=== PATIENT | male | born 1975 | race Caucasian/White ===

== ENCOUNTER 2021-06-25 00:21 | Emergency (ER) | payer SELFPAY ==
[~2021-06-25] VITALS: Ht 185.5 cm; Wt 96.2 kg
[2021-06-25 00:28] VITALS: BP_SYST 117; BP_SYST 121; BP_SYST 131; BP_DIAS 70; BP_DIAS 76; BP_DIAS 84
[2021-06-25] MEDS ORDERED: LACTATED RINGERS 1,000 ML IV ONE ×3 (00:28→02:00)
--- NOTE | 2021-06-25 00:39 | ED Syncope ---
General Stated Complaint: FALL,COVID + Source of Information: Patient, EMS Exam Limitations: No Limitations History of Present Illness Date Seen by Provider: Jun 25, 2021 Time Seen by Provider: 00:23 Initial Comments Patient to ER by EMS from home with chief complaint that he got up going to the bathroom when he got back up from going to the bathroom he says he felt off and is chest but not having any pain or shortness of air. He blacked out when his girlfriend helped him back up and he blacked out a second time for a few seconds. He has never had syncope before. He was diagnosed with Covid on Tuesday and symptoms started on Tuesday, 4 days ago. He has had no fevers but has had body aches and malaise. Dry nonproductive cough. No other significant medical history. He says has been drinking lots of fluids and going to the bathroom frequently. No dysuria or diarrhea. Allergies and Home Medications Allergies Coded Allergies: No Known Drug Allergies (Unverified , 06/25/21) Patient Home Medication List Home Medication List Reviewed: Yes Review of Systems Constitutional: No chills, No diaphoresis EENTM: No ear discharge, No ear pain Respiratory: cough; No phlegm; short of breath Cardiovascular: No edema, No Hx of Intervention, No palpitations Gastrointestinal: No abdominal pain, No nausea, No vomiting Genitourinary: No discharge, No dysuria Musculoskeletal: No back pain, No joint pain All Other Systems Reviewed Negative Unless Noted: Yes Past Hqfryla-Bawqps-Jfcqxd Hx Patient Social History Tobacco Use?: No Use of E-Cig and/or Vaping dev: No Substance use?: No Physical Exam Vital Signs Vital Signs - First Documented Capillary Refill : Height, Weight, BMI Height: '" Weight: lbs. oz. kg; BMI Method: General Appearance: No Apparent Distress, WD/WN HEENT: PERRL/EOMI, Pharynx Normal, Moist Mucous Membranes Neck: Full Range of Motion, Normal Inspection Cardiovascular: Regular Rate, Rhythm, No Edema, Normal Peripheral Pulses Respiratory: Chest Non Tender, Lungs Clear, Normal Breath Sounds, No Accessory Muscle Use, No Respiratory Distress Gastrointestinal: Normal Bowel Sounds, No Organomegaly, Non Tender, Soft Extremities: Normal Capillary Refill, Normal Inspection, Normal Range of Motion, No Pedal Edema Neurologic/Psychiatric: Alert, Oriented x3 Cranial Nerves: Normal Hearing, Normal Speech, PERRL Motor/Sensory: No Motor Deficit, No Sensory Deficit, No Pronator Drift Skin: Normal Color, Warm/Dry Progress/Results/Core Measures Results/Orders Lab Results Laboratory Tests Test 06/25/21 00:30 Range/Units White Blood Count 4.7 4.3-11.0 10^3/uL Red Blood Count 5.31 4.30-5.52 10^6/uL Hemoglobin 16.5 13.3-17.7 g/dL Hematocrit 47 40-54 % Mean Corpuscular Volume 88 80-99 fL Mean Corpuscular Hemoglobin 31 25-34 pg Mean Corpuscular Hemoglobin Concent 35 32-36 g/dL Red Cell Distribution Width 12.1 10.0-14.5 % Platelet Count 168 130-400 10^3/uL Mean Platelet Volume 9.4 9.0-12.2 fL Immature Granulocyte % (Auto) 0 % Neutrophils (%) (Auto) 56 42-75 % Lymphocytes (%) (Auto) 20 12-44 % Monocytes (%) (Auto) 22 H 0-12 % Eosinophils (%) (Auto) 1 0-10 % Basophils (%) (Auto) 1 0-10 % Neutrophils # (Auto) 2.6 1.8-7.8 10^3/uL Lymphocytes # (Auto) 0.9 L 1.0-4.0 10^3/uL Monocytes # (Auto) 1.0 0.0-1.0 10^3/uL Eosinophils # (Auto) 0.1 0.0-0.3 10^3/uL Basophils # (Auto) 0.0 0.0-0.1 10^3/uL Immature Granulocyte # (Auto) 0.0 0.0-0.1 10^3/uL Neutrophils % (Manual) 50 % Lymphocytes % (Manual) 20 % Monocytes % (Manual) 20 % Eosinophils % (Manual) 4 % Band Neutrophils 3 % Atypical Lymphocytes 3 % Toxic Granulation 2+ Microcytosis SLIGHT Sodium Level 134 L 135-145 MMOL/L Potassium Level 4.1 3.6-5.0 MMOL/L Chloride Level 101 98-107 MMOL/L Carbon Dioxide Level 22 21-32 MMOL/L Anion Gap 11 5-14 MMOL/L Blood Urea Nitrogen 13 7-18 MG/DL Creatinine 1.57 H 0.60-1.30 MG/DL Estimat Glomerular Filtration Rate 48 BUN/Creatinine Ratio 8 Glucose Level 110 H 70-105 MG/DL Calcium Level 8.7 8.5-10.1 MG/DL Corrected Calcium 8.8 8.5-10.1 MG/DL Total Bilirubin 0.4 0.1-1.0 MG/DL Aspartate Amino Transf (AST/SGOT) 41 H 5-34 U/L Alanine Aminotransferase (ALT/SGPT) 31 0-55 U/L Alkaline Phosphatase 51 40-136 U/L Troponin I < 0.028 <0.028 NG/ML B-Type Natriuretic Peptide 36.7 <100.0 PG/ML Total Protein 6.8 6.4-8.2 GM/DL Albumin 3.9 3.2-4.5 GM/DL My Orders Orders - ALL ZHAO Lactated Ringers (Lr 1000 Ml Iv Solution (06/25/21 00:28) Ekg Tracing (06/25/21 00:32) Continuous Ekg Monitoring (06/25/21 00:32) Troponin I (06/25/21 00:32) Cbc With Automated Diff (06/25/21 00:32) BNP (06/25/21 00:32) Comprehensive Metabolic Panel (06/25/21 00:32) Orthostatic Vital Signs (Adult (06/25/21 00:32) Ed Iv/Invasive Line Start (06/25/21 00:32) Lactated Ringers (Lr 1000 Ml Iv Solution (06/25/21 00:45) Covid-19 External Lab Results (06/25/21 00:41) Isolation Central Supply Req (06/25/21 00:41) Manual Differential (06/25/21 00:30) Ed Iv/Invasive Line Start (06/25/21 01:49) Lactated Ringers (Lr 1000 Ml Iv Solution (06/25/21 02:00) Ct Head Wo (06/25/21 01:49) Medications Given in ED Current Medications Medications Dose Ordered Sig/Ruth Route Start Time Stop Time Status Last Admin Dose Admin Lactated Ringer's 1,000 ml @ 0 mls/hr Q0M ONCE IV 06/25/21 00:45 06/25/21 00:46 DC 06/25/21 00:38 999 MLS/HR Lactated Ringer's 1,000 ml @ 0 mls/hr Q0M ONCE IV 06/25/21 02:00 06/25/21 02:01 DC 06/25/21 02:01 999 MLS/HR Vital Signs/I&O 06/25/21 06/25/21 06/25/21 00:21 00:21 00:28 Temp 37.2 Pulse 79 79 133 Resp 16 B/P (MAP) 121/70 (87) 121/70 (87) 117/76 (90) 131/84 (100) Pulse Ox 96 O2 Delivery Room Air Room Air Progress Progress Note #1: Time: 00:38 Progress Note A liter of lactated Ringer's and syncopal work-up. Orthostatic vital signs. Syncope after going to the bathroom with Covid. Will check troponin and EKG will help rule out significant viral myocarditis. Orthostatics were significant for heart rate jumping from the low 80s to 133 on standing. Progress Note #2: Time: 01:50 Progress Note Patient is on Xarelto for history of atrial fibrillation that started after his from cancer a few years ago. He has an appointment being worked on to go see a collection analyst by his PCP. He is not on any other medications. He was on atenolol briefly but said that it made him feel very poorly. He says he has not felt palpitations for some time. He does not have a personal history of blood clots nor does have a familial history. He is uncertain whether he hit his head when he collapsed because he does not remember at all. We did discuss the risks, benefits and alternatives to imaging his head versus observation and after using a clinic supported decision-making process the patient elected to get a CT. We will give him a second liter of fluids and reevaluate. He says he is already feeling much better after the first liter Initial ECG Impression Date: Jun 25, 2021 Initial ECG Impression Time: 00:33 Initial ECG Rate: 79 Initial ECG Rhythm: Normal Sinus Initial ECG Intervals: Normal Initial ECG Impression: Normal Initial ECG Comparisson: No Previous ECG Available Comment Normal sinus rhythm without clinically relevant ST changes. Diagnostic Imaging Diagonstic Imaging: CT Plain Films/CT/US/NM/MRI: head Comments No intracranial abnormality Reviewed: Reviewed by Me Departure Impression Primary Impression: Syncope and collapse Additional Impressions: Orthostasis COVID-19 Dehydration determined by examination Disposition: HOME, SELF-CARE Condition: Stable Departure-Patient Inst. Decision time for Depature: 03:00 Referrals: ROCÍO JOHNSON MD (Family) Primary Care Physician Patient Instructions: COVID-19 (DC), Syncope (Fainting) (DC) Add. Discharge Instructions: Drink plenty of fluids. Discussed with your primary care doctor and collection analyst appropriate management of atrial fibrillation with Xarelto. Return to the nearest ER for continued passing out, chest pain or other worrisome symptoms. ALL ZHAO J Jun 25, 2021 00:39
[2021-06-25 00:46] LABS: BASOPHILS % (AUTO) 1 % (0-10); EOSINOPHILS # (AUTO) 0.1 10^3/uL (0.0-0.3); EOSINOPHILS % (AUTO) 1 % (0-10); HEMATOCRIT 47 % (40-54); HEMOGLOBIN 16.5 g/dL (13.3-17.7); LYMPHOCYTES # (AUTO) 0.9 10^3/uL (1.0-4.0); LYMPHOCYTES % (AUTO) 20 % (12-44); MEAN CORPUSCULAR HEMOGLOBIN 31 pg (25-34); MEAN CORPUSCULAR HGB CONC 35 g/dL (32-36); MEAN CORPUSCULAR VOLUME 88 fL (80-99); MEAN PLATELET VOLUME 9.4 fL (9.0-12.2); MONOCYTES % (AUTO) 22 % (0-12); NEUTROPHILS # (AUTO) 2.6 10^3/uL (1.8-7.8); NEUTROPHILS % (AUTO) 56 % (42-75); PLATELET COUNT 168 10^3/uL (130-400); WHITE BLOOD COUNT 4.7 10^3/uL (4.3-11.0)
[2021-06-25 01:10] LABS: ALBUMIN 3.9 GM/DL (3.2-4.5); CHLORIDE 101 MMOL/L (98-107); POTASSIUM 4.1 MMOL/L (3.6-5.0); SODIUM 134 MMOL/L (135-145)
[2021-06-25 01:12] LABS: CALCIUM 8.7 MG/DL (8.5-10.1)
[2021-06-25 01:13] LABS: GLUCOSE 110 MG/DL (70-105); TOTAL PROTEIN 6.8 GM/DL (6.4-8.2)
[2021-06-25 01:14] LABS: CARBON DIOXIDE 22 MMOL/L (21-32)
[2021-06-25 01:15] LABS: BILIRUBIN,TOTAL 0.4 MG/DL (0.1-1.0)
[2021-06-25 01:16] LABS: ALKALINE PHOSPHATASE 51 U/L (40-136); CREATININE SERUM 1.57 MG/DL (0.60-1.30); GFR ESTIMATED 48
[2021-06-25 01:17] LABS: BUN/CREATININE RATIO 8
[2021-06-25 01:19] LABS: ALANINE AMINOTRANSFERASE 31 U/L (0-55)
[2021-06-25 01:28] LABS: ATYPICAL LYMPHOCYTES 3 %; BAND NEUTROPHILS 3 %; EOSINOPHILS % (MANUAL) 4 %; LYMPHOCYTES % (MANUAL) 20 %; MICROCYTOSIS SLIGHT; MONOCYTES % (MANUAL) 20 %; NEUTROPHILS % (MANUAL) 50 %; TOXIC GRANULATION/VACUOLAZATIO 2+
[2021-06-25 03:08] VITALS: BP 115/62
--- NOTE | 2021-06-25 06:31 | Diagnostic Imaging Report ---
EXAMINATION: CT head without contrast. TECHNIQUE: Multiple contiguous axial images were obtained through the brain without the use of intravenous contrast. All CT scans use one or more of the following dose optimizing techniques: automated exposure control, MA and/or KvP adjustment based on patient size and exam type or iterative reconstruction. HISTORY: syncope collapse on Xarelto COMPARISON: None available. FINDINGS: The ventricles and sulci are normal. No abnormal attenuation of brain parenchyma is present. No acute intracranial hemorrhage or abnormal extra-axial fluid collections are present. No hyperdense vessel. The calvarium is intact. The mastoid air cells are clear. The visualized paranasal sinuses are clear. The orbits are normal. IMPRESSION: 1. No acute intracranial abnormality. 2. Agree with preliminary interpretation. Dictated by: Dictated on workstation # [id number]
== END 2021-06-25 03:08 | disposition home or self-care (01) ==
LOC: EDUNIT# 00:21 → ER 00:23
DX: R55 Syncope and collapse (principal); U07.1 COVID-19; E86.0 Dehydration
CPT/HCPCS: 36415; 70450; 80053; 83880; 84484; 85007; 85025; 85027; 93005

== ENCOUNTER 2022-05-23 21:30 | Emergency (ER) | payer BC ==
[~2022-05-23] VITALS: Ht 185 cm; Wt 97.5 kg
[2022-05-23 22:20] LABS: BASOPHILS # (AUTO) 0.1 10^3/uL (0.0-0.1); BASOPHILS % (AUTO) 1 % (0-10); EOSINOPHILS # (AUTO) 0.4 10^3/uL (0.0-0.3); EOSINOPHILS % (AUTO) 5 % (0-10); HEMATOCRIT 45 % (40-54); HEMOGLOBIN 16.1 g/dL (13.3-17.7); LYMPHOCYTES # (AUTO) 2.2 10^3/uL (1.0-4.0); LYMPHOCYTES % (AUTO) 28 % (12-44); MEAN CORPUSCULAR HEMOGLOBIN 32 pg (25-34); MEAN CORPUSCULAR HGB CONC 36 g/dL (32-36); MEAN CORPUSCULAR VOLUME 87 fL (80-99); MEAN PLATELET VOLUME 9.2 fL (9.0-12.2); MONOCYTES % (AUTO) 13 % (0-12); NEUTROPHILS # (AUTO) 4.1 10^3/uL (1.8-7.8); NEUTROPHILS % (AUTO) 53 % (42-75); PLATELET COUNT 248 10^3/uL (130-400); WHITE BLOOD COUNT 7.8 10^3/uL (4.3-11.0)
[2022-05-23] MEDS ORDERED: ENOXAPARIN 100 MG/1 ML (LOVENOX) SYR SC ONE (22:30)
--- NOTE | 2022-05-23 22:30 | ED Cardiac General ---
History of Present Illness General Chief Complaint: Cardiac/General Problems Stated Complaint: IRREGULAR HEARTBEAT Source: patient History of Present Illness Date Seen by Provider: May 23, 2022 Time Seen by Provider: 22:05 Initial Comments PT ARRIVES VIA POV FROM HOME C/O IRREGULAR HEART BEAT STATES HE WAS DX WITH ATRIAL FIBRILLATION IN THE LAST YEAR--WAS SEEN BY MAL HERNANDES IN [facility], HAD AN EKG (NO OTHER TESTS OF ANY KIND, PER PT) AND DX WITH ATRIAL FIBRILLATION AND GIVEN RX FOR ATENOLOL. PT HAS NEVER BEEN ON ASPIRIN OR ANY BLOOD THINNER, OR HAD ANY OTHER TESTS OF ANY KIND, AND HAS NEVER BEEN REFERRED TO A COTTAGE CHE[employer] MAKER STATES HE WAS TOLD IT WAS BECAUSE OF STRESS, DUE TO DYING OF CANCER. PT SELF DC'D THE MEDICATION 7-8 MONTHS AGO PT STATES HE HAS HAD AN "IRREGULAR HEART BEAT OFF AND ON" FOR AT LEAST A YEAR. STATES IT HAS BEEN MORE FREQUENT THE LAST COUPLE OF MONTHS, AND HAS HAD MUCH FATIGUE LATELY. PT HAS NOT ATTEMPTED TO FOLLOW UP WITH ANY ONE AT ANY TIME, UNTIL DEYSI STATES TODAY HE WAS WORKING OUT, AND HIS SYMPTOMS GOT MUCH WORSE ( NORMALLY WORKS OUT 4 DAYS A WEEK, AND WAS NOT DOING ANYTHING UNUSUAL TODAY) STATES HIS HEART WAS BEATING VERY IRREGULAR, FELT SHORT OF BREATH WHILE HE WAS WORKING OUT, AND GOT LIGHTHEADED AND THOUGHT HE MIGHT PASS OUT-SO HE SAT DOWN. THEN AFTER HE GOT OUT OF THE SHOWER [employer], HE BROKE OUT INTO A SWEAT. NO CHEST PAIN NO NAUSEA/VOMITING NO SWELLING IN LEGS/ FEET OR PAIN IN CALVES NO FEVER OR RECENT ILLNESS. DENIES ANY OTHER MEDICAL PROBLEMS DOES NOT TAKE ANY OVER THE COUNTER MEDICATIONS OR SUPPLEMENTS PCP: MAL HERNANDES IN [facility]. Allergies and Home Medications Allergies Coded Allergies: No Known Drug Allergies (Unverified , 06/25/21) Review of Systems Review of Systems Constitutional: see HPI, diaphoresis, dizziness EENTM: No Symptoms Reported Respiratory: See HPI, Shortness of Air, SOA With Exertion Cardiovascular: See HPI, Irregular Heart Rate, Lightheadedness, Palpitations, Other (NEAR-SYNCOPE) Gastrointestinal: No Symptoms Reported Genitourinary: No Symptoms Reported Musculoskeletal: no symptoms reported Skin: no symptoms reported Psychiatric/Neurological: No Symptoms Reported Endocrine: No Symptoms Reported Hematologic/Lymphatic: No Symptoms Reported Past Vzktsel-Remjkl-Yrgxsy Hx Patient Social History Tobacco Use?: No Smoking Status: Former Smoker (SMOKED IN COLLEGE) Substance use?: Yes Substance type: Marijuana Additional substance use comme: THC IN PAST Alcohol Use?: Yes Alcohol Frequency: Several times a month Past Medical History Surgeries: Yes (LIPOMA REMOVED) Respiratory: No Cardiac: Yes Atrial Fibrillation Neurological: No Genitourinary: No Gastrointestinal: No Musculoskeletal: No Endocrine: No HEENT: No Cancer: No Psychosocial: No Integumentary: No Blood Disorders: No Physical Exam Vital Signs Vital Signs - First Documented 05/23/22 22:12 Temp 37.0 Pulse 77 Resp 20 B/P (MAP) 153/104 (120) Pulse Ox 98 O2 Delivery Room Air Capillary Refill : Less Than 3 Seconds Height, Weight, BMI Height: '" Weight: lbs. oz. kg; 27.00 BMI Method: General Appearance: No Apparent Distress, WD/WN Neck: Normal Inspection Respiratory: Normal Breath Sounds, No Accessory Muscle Use, No Respiratory Distress Cardiovascular: No Edema, No JVD, No Murmur, Normal Peripheral Pulses, Irregularly Irregular Gastrointestinal: Non Tender, Soft Extremity: Normal Capillary Refill, Normal Inspection, Normal Range of Motion, Non Tender, No Calf Tenderness, No Pedal Edema Neurologic/Psychiatric: Alert, Oriented x3, No Motor/Sensory Deficits, Normal Mood/Affect, policy officer II-XII Norm as Tested Skin: Normal Color (VERY MCKEON), Warm/Dry; No Rash Progress/Results/Core Measures Results/Orders Lab Results Laboratory Tests Test 05/23/22 22:12 Range/Units White Blood Count 7.8 4.3-11.0 10^3/uL Red Blood Count 5.11 4.30-5.52 10^6/uL Hemoglobin 16.1 13.3-17.7 g/dL Hematocrit 45 40-54 % Mean Corpuscular Volume 87 80-99 fL Mean Corpuscular Hemoglobin 32 25-34 pg Mean Corpuscular Hemoglobin Concent 36 32-36 g/dL Red Cell Distribution Width 11.6 10.0-14.5 % Platelet Count 248 130-400 10^3/uL Mean Platelet Volume 9.2 9.0-12.2 fL Immature Granulocyte % (Auto) 0 % Neutrophils (%) (Auto) 53 42-75 % Lymphocytes (%) (Auto) 28 12-44 % Monocytes (%) (Auto) 13 H 0-12 % Eosinophils (%) (Auto) 5 0-10 % Basophils (%) (Auto) 1 0-10 % Neutrophils # (Auto) 4.1 1.8-7.8 10^3/uL Lymphocytes # (Auto) 2.2 1.0-4.0 10^3/uL Monocytes # (Auto) 1.0 0.0-1.0 10^3/uL Eosinophils # (Auto) 0.4 H 0.0-0.3 10^3/uL Basophils # (Auto) 0.1 0.0-0.1 10^3/uL Immature Granulocyte # (Auto) 0.0 0.0-0.1 10^3/uL D-Dimer < 0.27 0.00-0.49 UG/ML Sodium Level 140 135-145 MMOL/L Potassium Level 3.8 3.6-5.0 MMOL/L Chloride Level 104 98-107 MMOL/L Carbon Dioxide Level 22 21-32 MMOL/L Anion Gap 14 5-14 MMOL/L Blood Urea Nitrogen 19 H 7-18 MG/DL Creatinine 1.58 H 0.60-1.30 MG/DL Estimat Glomerular Filtration Rate 54 BUN/Creatinine Ratio 12 Glucose Level 101 70-105 MG/DL Calcium Level 9.1 8.5-10.1 MG/DL Corrected Calcium 8.9 8.5-10.1 MG/DL Magnesium Level 2.2 1.6-2.4 MG/DL Total Bilirubin 0.7 0.1-1.0 MG/DL Aspartate Amino Transf (AST/SGOT) 44 H 5-34 U/L Alanine Aminotransferase (ALT/SGPT) 37 0-55 U/L Alkaline Phosphatase 54 40-136 U/L Troponin I 0.036 H <0.028 NG/ML B-Type Natriuretic Peptide 24.3 <100.0 PG/ML Total Protein 7.2 6.4-8.2 GM/DL Albumin 4.3 3.2-4.5 GM/DL TSH [place] Testing 2.37 0.35-4.94 UIU/ML My Orders Orders - TRUONG NOONAN DO Ekg Tracing (05/23/22 22:03) Ed Iv/Invasive Line Start (05/23/22 22:07) Monitor-Rhythm Ecg Trace Only (05/23/22 22:07) Bnp Taliaferro (05/23/22 22:07) Cbc With Automated Diff (05/23/22 22:07) Comprehensive Metabolic Panel (05/23/22 22:07) Fibrin Degradation Products (05/23/22 22:07) Drug Screen Stat (Urine) (05/23/22 22:07) Magnesium (05/23/22 22:07) Thyroid Analyzer (05/23/22 22:07) Ua Culture If Indicated (05/23/22 22:07) Troponin I [place] (05/23/22 22:07) Enoxaparin Injection (Lovenox Injection) (05/23/22 22:30) Lorazepam Tablet (Ativan Tablet) (05/23/22 22:51) Ed Iv/Invasive Line Start (05/23/22 23:00) Ns Iv 1000 Ml (Sodium Chloride 0.9%) (05/23/22 23:00) Medications Given in ED Current Medications Medications Dose Ordered Sig/Ruth Route Start Time Stop Time Status Last Admin Dose Admin Enoxaparin Sodium 100 mg ONCE ONCE SC 05/23/22 22:30 05/23/22 22:31 DC 05/23/22 22:31 100 MG Vital Signs/I&O 05/23/22 22:12 Temp 37.0 Pulse 77 Resp 20 B/P (MAP) 153/104 (120) Pulse Ox 98 O2 Delivery Room Air Progress Progress Note : Progress Note HEART RATE IS 70-90, IN ATRIAL FIBRILLATION OTHER VITALS NORMAL GIVEN ASPIRIN AND LOVENOX Departure Impression Primary Impression: Chronic atrial fibrillation Disposition: 01 HOME, SELF-CARE Condition: Stable Departure-Patient Inst. Decision time for Depature: 00:20 Referrals: NO,LOCAL PHYSICIAN (PCP) Primary Care Physician DARIUSZ HERNANDES (Family) Primary Care Physician Patient Instructions: Atrial Fibrillation, Going Home on Blood Thinners Add. Discharge Instructions: HOME, REST AVOID CAFFEINE OR ANY ENERGY DRINKS OR SUPPLEMENTS FOLLOW UP WITH DR. CARSON, COTTAGE CHEESE MAKER, THIS WEEK FOR FURTHER CARE--CALL IN THE MORNING FOR APPOINTMENT All discharge instructions reviewed with patient and/or family. Voiced understanding. Scripts Apixaban (Eliquis) 5 Mg Tablet 5 MG PO BID for 30 Days, #74 TAB TAKE 2 TABLETS BID X 7 DAYS, THEN 1 TABLET BID Prov: TRUONG NOONAN DO 05/24/22 Metoprolol Succinate (Toprol Xl) 25 Mg Tab.er.24h 25 MG PO DAILY, #30 TAB Prov: TRUONG NOONAN DO 05/24/22 Work/School Note: Work Release Form Date Seen in the Emergency Department: May 23, 2022 Return to Work: May 24, 2022 Other Restrictions Listed Below: NO STRENUOUS ACTIVITY, NO LIFTING, ETC. UNTIL CLEARED BY TRUONG DURON DO May 23, 2022 22:30
[2022-05-23 22:37] LABS: ALBUMIN 4.3 GM/DL (3.2-4.5)
[2022-05-23 22:38] LABS: POTASSIUM 3.8 MMOL/L (3.6-5.0)
[2022-05-23 22:39] LABS: CALCIUM 9.1 MG/DL (8.5-10.1)
[2022-05-23 22:40] LABS: TOTAL PROTEIN 7.2 GM/DL (6.4-8.2)
[2022-05-23 22:42] LABS: BILIRUBIN,TOTAL 0.7 MG/DL (0.1-1.0)
[2022-05-23 22:44] LABS: CREATININE SERUM 1.58 MG/DL (0.60-1.30)
[2022-05-23 22:46] LABS: MAGNESIUM 2.2 MG/DL (1.6-2.4)
[2022-05-23] MEDS ORDERED: LORazepam 0.5 MG (ATIVAN) TABLET PO STA (22:51)
[2022-05-23] MEDS ORDERED: NS IV 1000 ML 1,000 ML IV SCH (23:00)
[2022-05-23 23:09] LABS: TSH (THYROID ANALYZER) 2.37 UIU/ML (0.35-4.94)
[2022-05-24] MEDS ORDERED: METO-351 PO (00:28)
[2022-05-24] MEDS ORDERED: APIX5TAB PO (00:28)
[2022-05-24 00:50] VITALS: BP 129/97
== END 2022-05-24 00:50 | disposition home or self-care (01) ==
LOC: EDUNIT# 21:30 → ER 21:33
DX: I48.20 Chronic atrial fibrillation, unspecified (principal); Z87.891 Personal history of nicotine dependence; Z28.310 Unvaccinated for COVID-19
CPT/HCPCS: 36415; 80053; 83735; 83880; 84443; 84484; 85025; 85379; 93005; 93041

== ENCOUNTER → 2022-05-25 | Outpatient (CLI) | payer BC ==
[~2022-05-25] MED LIST: APIX5TAB PO; METO-351 PO
== END ==
LOC: CARD 10:20
PROVIDERS: ATTEND Internal Medicine Cardiovascular Disease
DX: I48.0 Paroxysmal atrial fibrillation (principal); I51.7 Cardiomegaly; I34.0 Nonrheumatic mitral (valve) insufficiency
CPT/HCPCS: 93306

== ENCOUNTER → 2022-05-27 | Outpatient (CLI) | payer BC ==
[2022-05-27 14:45] VITALS: BP 134/84
--- NOTE | 2022-05-28 14:53 | Cardiology Stress Test Report ---
Stress Test Report Date of Procedure/Referring: Date of Procedure: May 27, 2022 PCP No,Local Physician Admitting Physician Admitting Physician: Attending Physician: Lemuel Botello Jr, MD Indications: Paroxysmal atrial fibrillation. Baseline Heart Rate: 77 Baseline Blood Pressure: Blood Pressure Systolic: 134 Blood Pressure Diastolic: 84 Baseline EKG: Baseline EKG: Sinus rhythm with frequent, isolated premature ventricular complexes. Summary/Conclusion: PROCEDURE: The patient was exercised for total of 10 minutes of the standard Tony protocol achieving a maximum MET level of 11.7. The resting heart rate was 77 bpm and the peak heart rate was 148 bpm, which represents 85% of the maximum predicted heart rate. The resting blood pressure was 134/84 mmHg and the peak blood pressure was 205/88 mmHg. This represents a normal heart rate and a hypertensive blood pressure response to exercise. The test was stopped due to the patient attaining the target heart rate. There was no exercise- induced chest discomfort. There were premature supraventricular and premature ventricular complexes during the test. There were no exercise-induced electroca rdiogram changes. The patient exhibited excellent exercise capacity for age. IMPRESSION: 1. Normal heart rate and a hypertensive blood pressure response to exercise. 2. There was no chest discomfort during the test. 3. There were isolated premature supraventricular and premature ventricular complexes throughout the test. 4. There were no stress-induced electrocardiogram changes. 5. The patient exhibited excellent exercise capacity for age at 10 minutes of the Tony protocol. Certain portions of this document may have been dictated utilizing voice recognition technology. Inherent to this technology, typographical and grammat ical errors may exist. As much as I am diligent to identify and correct these mistakes, some errors may remain in the document. LEMUEL BOTELLO JR, MD May 28, 2022 14:53
== END ==
LOC: CARD 14:30
PROVIDERS: ATTEND Internal Medicine Cardiovascular Disease
DX: I48.0 Paroxysmal atrial fibrillation (principal)
CPT/HCPCS: 93017

== ENCOUNTER 2022-09-09 05:33 | Emergency (ER) | payer BC ==
[~2022-09-09] VITALS: Ht 185.5 cm; Wt 97.7 kg
[2022-09-09] MEDS ORDERED: LACTATED RINGERS 1,000 ML IV STA (06:05)
[2022-09-09 06:12] LABS: HEMATOCRIT 45 % (40-54); HEMOGLOBIN 16.3 g/dL (13.3-17.7); MEAN CORPUSCULAR HEMOGLOBIN 31 pg (25-34); MEAN CORPUSCULAR HGB CONC 37 g/dL (32-36); MEAN CORPUSCULAR VOLUME 85 fL (80-99); MEAN PLATELET VOLUME 9.1 fL (9.0-12.2); PLATELET COUNT 257 10^3/uL (130-400); WHITE BLOOD COUNT 6.6 10^3/uL (4.3-11.0)
--- NOTE | 2022-09-09 06:13 | ED Abdominal Pain ---
General Chief Complaint: Abdominal/GI Problems Stated Complaint: ABD PAIN Nursing Triage Note: PT STATES ABD DISCOMFORT, N/V THAT STARTED ON TUESDAY, CONSTIPATION SINCE TUESDAY EVENING, UNABLE TO KEEP ANYTHING DOWN. Source of Information: Patient Exam Limitations: No Limitations (JOSEE BENAVIDES MD) History of Present Illness Date Seen by Provider: Sep 09, 2022 Time Seen by Provider: 05:50 Initial Comments Here with report of having GI bug on Tuesday and unable to keep anything down throughout the whole day. States he vomited several times. He is feeling a little better Tuesday and went back to normal diet. Throughout the week he has had abdominal cramping right after he eats or a couple hours after he eats. He has not had a bowel movement since Tuesday was worried about that. Feels bloating and belching every time he eats and is concerned about that. Denies fever chills currently. Reports able to drink okay and urinating without difficulty. Timing/Duration: 3-4 Days Severity/Quality: Mild, Cramping Location: Generalized Abdomen Radiation: No Radiation Activities at Onset: None Modifying Factors: Worsens With Eating; Improves With Resting Associated Symptoms: No Back Pain, No Chest Pain, No Fever/Chills; Nausea/Vomiting; No Shortness of Air, No Weakness (JOSEE BENAVIDES MD) Allergies and Home Medications Allergies Coded Allergies: No Known Drug Allergies (Unverified , 06/25/21) Patient Home Medication List Home Medication List Reviewed: Yes (JOSEE BENAVIDES MD) Apixaban (Eliquis) 5 Mg Tablet, 5 MG PO BID Prescribed by: TRUONG NOONAN on 05/24/2227 Hyoscyamine Sulfate (Levsin-Sl) 0.125 Mg Tab.subl, 1-2 TAB SL Q4H PRN for CRAMPS Prescribed by: SURENDRA HUBBARD on 09/09/22 0816 Metoprolol Succinate (Toprol Xl) 25 Mg Tab.er.24h, 25 MG PO DAILY Prescribed by: TRUONG NOONAN on 05/24/2227 Review of Systems Review of Systems Constitutional: No chills, No fever EENTM: No Nose Congestion, No Throat Pain Respiratory: Denies Cough, Denies Shortness of Air Gastrointestinal: Nausea, Vomiting Genitourinary: Denies Frequency, Denies Pain Musculoskeletal: no symptoms reported Skin: No change in color, No lesions Psychiatric/Neurological: Denies Headache, Denies Weakness Endocrine: No Symptoms Reported Hematologic/Lymphatic: No Symptoms Reported (JOSEE BENAVIDES MD) All Other Systems Reviewed Negative Unless Noted: Yes (JOSEE BENAVIDES MD) Past Itkitgj-Hlyqxq-Phvnpa Hx Patient Social History Tobacco Use?: No Substance use?: Yes Substance type: Marijuana Alcohol Use?: No (JOSEE BENAVIDES MD) Past Medical History Surgeries: Yes (LIPOMA REMOVED) Respiratory: No Cardiac: Yes Atrial Fibrillation Neurological: No Genitourinary: No Gastrointestinal: No Musculoskeletal: No Endocrine: No HEENT: No Cancer: No Psychosocial: No Integumentary: No Blood Disorders: No (JOSEE BENAVIDES MD) Family Medical History Reviewed Nursing Family Hx (JOSEE BENAVIDES MD) Physical Exam Vital Signs Vital Signs - First Documented 09/09/22 09/09/22 05:40 08:20 Temp 35.8 Pulse 74 Resp 18 B/P (MAP) 146/93 (110) Pulse Ox 99 O2 Delivery Room Air (SURENDRA GARCIA MD) Vital Signs Capillary Refill : Less Than 3 Seconds (JOSEE BENAVIDES MD) Height/Weight/BMI Height: '" Weight: lbs. oz. kg; 28.00 BMI Method: General Appearance: WD/WN, no apparent distress HEENT: PERRL/EOMI, pharynx normal Neck: full range of motion, supple Respiratory: lungs clear, normal breath sounds Cardiovascular: regular rate, rhythm, no murmur Gastrointestinal: soft, no organomegaly; No rebound, No tenderness Extremities: non-tender, normal inspection Neurologic/Psychiatric: alert, oriented x 3 Skin: normal color, warm/dry (JOSEE BENAVIDES MD) Progress/Results/Core Measures Results/Orders Lab Results Laboratory Tests Test 09/09/22 05:47 Range/Units White Blood Count 6.6 4.3-11.0 10^3/uL Red Blood Count 5.24 4.30-5.52 10^6/uL Hemoglobin 16.3 13.3-17.7 g/dL Hematocrit 45 40-54 % Mean Corpuscular Volume 85 80-99 fL Mean Corpuscular Hemoglobin 31 25-34 pg Mean Corpuscular Hemoglobin Concent 37 H 32-36 g/dL Red Cell Distribution Width 11.6 10.0-14.5 % Platelet Count 257 130-400 10^3/uL Mean Platelet Volume 9.1 9.0-12.2 fL Sodium Level 139 135-145 MMOL/L Potassium Level 3.8 3.6-5.0 MMOL/L Chloride Level 105 98-107 MMOL/L Carbon Dioxide Level 24 21-32 MMOL/L Anion Gap 10 5-14 MMOL/L Blood Urea Nitrogen 15 7-18 MG/DL Creatinine 1.25 0.60-1.30 MG/DL Estimat Glomerular Filtration Rate 71 BUN/Creatinine Ratio 12 Glucose Level 84 70-105 MG/DL Calcium Level 9.0 8.5-10.1 MG/DL Corrected Calcium 8.7 8.5-10.1 MG/DL Total Bilirubin 1.1 H 0.1-1.0 MG/DL Aspartate Amino Transf (AST/SGOT) 30 5-34 U/L Alanine Aminotransferase (ALT/SGPT) 35 0-55 U/L Alkaline Phosphatase 46 40-136 U/L C-Reactive Protein High Sensitivity 0.09 0.00-0.50 MG/DL Total Protein 7.2 6.4-8.2 GM/DL Albumin 4.4 3.2-4.5 GM/DL Lipase 42 8-78 U/L (SURENDRA GARCIA MD) My Orders Orders - SURENDRA GARCIA MD Lipase (09/09/22 07:32) Abdomen, Flat & Upright/Decub (09/09/22 07:32) (SURENDRA GARCIA MD) Medications Given in ED (SURENDRA GARCIA MD) Vital Signs/I&O 09/09/22 09/09/22 05:40 08:20 Temp 35.8 Pulse 74 56 Resp 18 16 B/P (MAP) 146/93 (110) 122/86 Pulse Ox 99 98 O2 Delivery Room Air (SURENDRA GARCIA MD) Blood Pressure Mean: 110 Progress Progress Note : Progress Note Seen and evaluated. IV, labs, normal saline 1 L bolus and Levsin 0.125 mg p.o. Monitor patient. Care transferred to Dr. Garcia pending labs. (JOSEE BENAVIDES MD) Progress Note : Progress Note I assumed care of this patient from Dr. Benavides at shift change. He had modest improvement in symptoms with treatment. He describes feeling constipated and wonders about continued use of laxatives. To help clarify the issue, abdominal x-rays were offered. He decided to proceed with x-rays. There was prominent gas throughout the bowel consistent with ileus. No constipation was noted. Labs and x-rays were reviewed. Dietary recommendations were provided. Patient has Zofran at home. See discharge instructions for further discussion. (SURENDRA GARCIA MD) Diagnostic Imaging Diagonstic Imaging: Xray Plain Films/CT/US/NM/MRI: abdomen, pelvis Comments X-rays viewed by me and report reviewed. See report below: NAME: ILIA [facility]LIN [facility] REC#: [id number] PT STATUS: REG ER : 1975 PHYSICIAN: SURENDRA GARCIA MD ADMIT DATE: 09/09/22/ER Draft Date of Exam:09/09/22 ABDOMEN, FLAT UPRIGHT/DECUB INDICATION: Flu last weekend, abdominal pain. TECHNIQUE: Supine and upright radiograph of the abdomen 7:55 AM CORRELATION STUDY: None FINDINGS: Visualized lung bases unremarkable. There are prominent gas-filled loops of bowel throughout the gastrointestinal tract. This includes small bowel and some gas in the colon. A few air-fluid levels are present. No significant stool retention or fecal impaction. No pathologic intra-abdominal calcifications. IMPRESSION: 1. Rather prominent gas distention throughout the gastrointestinal tract with few scattered air-fluid levels. Features favor probable ileus. Follow-up imaging if clinically warranted. Dictated on workstation # [id number] Dict: 09/09/22 0754 Trans: 09/09/22 0758 [facility] [id number] Interpreted by: VARUN NEWTON DO (SURENDRA GARCIA MD) Departure Impression Primary Impression: Nausea and vomiting Qualified Codes: R11.2 - Nausea with vomiting, unspecified Additional Impressions: Upper abdominal pain Gastroenteritis Ileus Disposition: 01 HOME, SELF-CARE Condition: Improved Departure-Patient Inst. Decision time for Depature: 08:06 (SURENDRA GARCIA MD) Referrals: NO,LOCAL PHYSICIAN (PCP) Primary Care Physician DARIUSZ HERNANDES (Family) Primary Care Physician Patient Instructions: Abdominal Pain, Adult ED, Viral Gastroenteritis in Adults Add. Discharge Instructions: Your symptoms are likely due to a viral gastroenteritis. Observe primarily a clear liquid diet for the rest of today. This would include water, sports drinks, chicken broth, Pedialyte, Jell-O, etc. Avoid carbonation. If feeling well this evening, you may try a few bites of bland solid food. After 24 hours of primarily clear liquid diet, gradually advance your diet with small quantities of bland food such as crackers, toast, banana, white rice, etc. Avoid fatty/greasy foods and dairy products for at least 48 hours after your symptoms resolve. For upper abdominal discomfort, consider taking an antacid medication such as Pepcid (famotidine), omeprazole, Tums, etc. Use your Zofran (ondansetron) as previously prescribed for nausea and vomiting. No constipation or significant stool burden was noted on your x-ray. Treatment for constipation is probably not necessary. You may use Tylenol (acetaminophen) up to 1000 mg every 6 hours as needed for pain. Use ibuprofen cautiously as it may worsen gastritis (inflammation of the stomach). If ibuprofen is used, also use an antacid as described above. Levsin (hyoscyamine) may be used for bowel cramping if necessary. Follow-up with your primary care provider if not improving by Tuesday. Return to the ER if symptoms worsen or if you develop new symptoms such as bloody stools, fever, untreatable pain, etc. All discharge instructions reviewed with patient and/or family. Voiced understanding. Scripts Hyoscyamine Sulfate (Levsin-Sl) 0.125 Mg Tab.subl 1-2 TAB SL Q4H PRN for CRAMPS, #10 TAB 0 Refills Prov: SURENDRA GARCIA MD 09/09/22 JOSEE BENAVIDES MD Sep 09, 2022 06:13 SURENDRA GARCIA MD Sep 09, 2022 08:10
[2022-09-09 06:15] LABS: ALBUMIN 4.4 GM/DL (3.2-4.5); POTASSIUM 3.8 MMOL/L (3.6-5.0)
[2022-09-09] MEDS ORDERED: HYOSCYAMINE 0.125 MG (LEVSIN) TAB SL ONE (06:15)
[2022-09-09 06:17] LABS: TOTAL PROTEIN 7.2 GM/DL (6.4-8.2)
[2022-09-09 06:19] LABS: BILIRUBIN,TOTAL 1.1 MG/DL (0.1-1.0)
[2022-09-09 06:21] LABS: CREATININE SERUM 1.25 MG/DL (0.60-1.30)
--- NOTE | 2022-09-09 07:59 | Diagnostic Imaging Report ---
INDICATION: Flu last weekend, abdominal pain. TECHNIQUE: Supine and upright radiograph of the abdomen 7:55 AM CORRELATION STUDY: None FINDINGS: Visualized lung bases unremarkable. There are prominent gas-filled loops of bowel throughout the gastrointestinal tract. This includes small bowel and some gas in the colon. A few air-fluid levels are present. No significant stool retention or fecal impaction. No pathologic intra-abdominal calcifications. IMPRESSION: 1. Rather prominent gas distention throughout the gastrointestinal tract with few scattered air-fluid levels. Features favor probable ileus. Follow-up imaging if clinically warranted. Dictated by: Dictated on workstation # [id number]
[2022-09-09] MEDS ORDERED: HYOS0.1283 SL (08:16)
[2022-09-09 08:20] VITALS: BP 122/86
== END 2022-09-09 08:20 | disposition home or self-care (01) ==
LOC: EDUNIT# 05:33 → ER 05:34
DX: K52.9 Noninfective gastroenteritis and colitis, unspecified (principal); Z28.310 Unvaccinated for COVID-19
CPT/HCPCS: 36415; 74019; 80053; 83690; 85027; 86141; 99281

== ENCOUNTER 2023-03-17 15:41 | Emergency (ER) | payer OTHER ==
[~2023-03-17] VITALS: Ht 185.5 cm; Wt 97.5 kg
[~2023-03-17 15:41] MED LIST changes: +HYOS0.1283 SL
[2023-03-17 16:24] LABS: BASOPHILS # (AUTO) 0.1 10^3/uL (0.0-0.1); BASOPHILS % (AUTO) 1 % (0-10); EOSINOPHILS # (AUTO) 0.3 10^3/uL (0.0-0.3); EOSINOPHILS % (AUTO) 4 % (0-10); HEMATOCRIT 47 % (40-54); LYMPHOCYTES # (AUTO) 2.2 X 10^3 (1.0-4.0); LYMPHOCYTES % (AUTO) 26 % (12-44); MEAN CORPUSCULAR HEMOGLOBIN 31 pg (25-34); MEAN CORPUSCULAR HGB CONC 36 g/dL (32-36); MEAN CORPUSCULAR VOLUME 86 fL (80-99); MEAN PLATELET VOLUME 9.1 fL (9.0-12.2); MONOCYTES # (AUTO) 0.8 X 10^3 (0.0-1.0); MONOCYTES % (AUTO) 10 % (0-12); NEUTROPHILS # (AUTO) 4.8 X 10^3 (1.8-7.8); NEUTROPHILS % (AUTO) 59 % (42-75); PLATELET COUNT 275 10^3/uL (130-400); WHITE BLOOD COUNT 8.1 10^3/uL (4.3-11.0)
[2023-03-17 16:25] LABS: POTASSIUM 3.9 MMOL/L (3.6-5.0)
[2023-03-17 16:27] LABS: CALCIUM 9.6 MG/DL (8.5-10.1)
[2023-03-17 16:31] LABS: CREATININE SERUM 1.37 MG/DL (0.60-1.30)
--- NOTE | 2023-03-17 17:03 | ED Cardiac General ---
History of Present Illness General Chief Complaint: Cardiac/General Problems Stated Complaint: RAPID HEART RATE Nursing Triage Note: PT AMB TO [facility] 5 WITH COMPLAINT OF AFIB. STATES WENT INTO AFIB ABOUT 3 AM THIS MORNING. TAKES ATENOLOL DAILY. DOES NOT CURRENTLY TAKE A BLOOD THINNER. USED TO SEE DR BOTELLO, BUT HAS APPT WITH JAREN IN [place]. Source: patient, old records Exam Limitations: no limitations History of Present Illness Date Seen by Provider: Mar 17, 2023 Time Seen by Provider: 16:17 Initial Comments This 47 year old gentleman presents to the ER with an episode of A-fib with RVR that started about 03:00. He has experienced intermittent episodes of brief A- fib since he was diagnosed last year. He had a through evaluation by Dr. Botello including echo and stress test with no major abnormalities detected. He was originally taking Flecainide and Atenolol, but he stopped taking the Flecainide. He came to the ER today because this episode has been persistent throughout the day. He believes alcohol is a trigger and he consumed approxim ately 6 shots of hard alcohol in mixed drinks last night. He has a cardiology follow-up appointment with Dr. Fan in April. His PCP is Rashaad Hernandes in [place], [place]. ASA po FITNESS SERVICES MANAGER: No Allergies and Home Medications Allergies Coded Allergies: No Known Drug Allergies (Unverified , 06/25/21) Patient Home Medication List Home Medication List Reviewed: Yes Apixaban (Eliquis) 5 Mg Tablet, 5 MG PO BID Prescribed by: TRUONG NOONAN on 05/24/2227 Hyoscyamine Sulfate (Levsin-Sl) 0.125 Mg Tab.subl, 1-2 TAB SL Q4H PRN for CRAMPS Prescribed by: SURENDRA HUBBARD on 09/09/22 0816 Metoprolol Succinate (Toprol Xl) 25 Mg Tab.er.24h, 25 MG PO DAILY Prescribed by: TRUONG NOONAN on 05/24/2227 Review of Systems Review of Systems Constitutional: no symptoms reported EENTM: No Symptoms Reported Respiratory: No Symptoms Reported Cardiovascular: See HPI Gastrointestinal: No Symptoms Reported Genitourinary: No Symptoms Reported Musculoskeletal: no symptoms reported Skin: no symptoms reported Psychiatric/Neurological: No Symptoms Reported Endocrine: No Symptoms Reported Past Lycqnrs-Tpszkl-Kaqrtp Hx Patient Social History Tobacco Use?: No Use of E-Cig and/or Vaping dev: No Substance use?: No Alcohol Use?: Yes Alcohol Frequency: Once in a while Pt feels they are or have been: No Past Medical History Surgeries: Yes (LIPOMA REMOVED) Respiratory: No Cardiac: Yes Atrial Fibrillation (paroxysmal) Neurological: No Genitourinary: No Gastrointestinal: No Musculoskeletal: No Endocrine: No HEENT: No Cancer: No Psychosocial: No Integumentary: No Blood Disorders: No Physical Exam Vital Signs Vital Signs - First Documented 03/17/23 15:51 Pulse 128 Resp 16 B/P (MAP) 130/91 (104) Pulse Ox 98 O2 Delivery Room Air Capillary Refill : Less Than 3 Seconds Height, Weight, BMI Height: '" Weight: lbs. oz. kg; 28.00 BMI Method: General Appearance: No Apparent Distress, WD/WN HEENT: Normal ENT Inspection Neck: Normal Inspection; No JVD Respiratory: Lungs Clear, Normal Breath Sounds, No Accessory Muscle Use Cardiovascular: Regular Rate, Rhythm, No Edema, No Murmur Gastrointestinal: Non Tender, Soft; No Distended Extremity: Normal Inspection, No Pedal Edema Neurologic/Psychiatric: Alert, Oriented x3, No Motor/Sensory Deficits, Normal Mood/Affect Skin: Normal Color, Warm/Dry Progress/Results/Core Measures Results/Orders Lab Results Laboratory Tests Test 03/17/23 15:59 Range/Units White Blood Count 8.1 4.3-11.0 10^3/uL Red Blood Count 5.44 4.30-5.52 10^6/uL Hemoglobin 17.0 13.3-17.7 g/dL Hematocrit 47 40-54 % Mean Corpuscular Volume 86 80-99 fL Mean Corpuscular Hemoglobin 31 25-34 pg Mean Corpuscular Hemoglobin Concent 36 32-36 g/dL Red Cell Distribution Width 11.8 10.0-14.5 % Platelet Count 275 130-400 10^3/uL Mean Platelet Volume 9.1 9.0-12.2 fL Immature Granulocyte % (Auto) 0 % Neutrophils (%) (Auto) 59 42-75 % Lymphocytes (%) (Auto) 26 12-44 % Monocytes (%) (Auto) 10 0-12 % Eosinophils (%) (Auto) 4 0-10 % Basophils (%) (Auto) 1 0-10 % Neutrophils # (Auto) 4.8 1.8-7.8 X 10^3 Lymphocytes # (Auto) 2.2 1.0-4.0 X 10^3 Monocytes # (Auto) 0.8 0.0-1.0 X 10^3 Eosinophils # (Auto) 0.3 0.0-0.3 10^3/uL Basophils # (Auto) 0.1 0.0-0.1 10^3/uL Immature Granulocyte # (Auto) 0.0 0.0-0.1 10^3/uL Sodium Level 137 135-145 MMOL/L Potassium Level 3.9 3.6-5.0 MMOL/L Chloride Level 103 98-107 MMOL/L Carbon Dioxide Level 23 21-32 MMOL/L Anion Gap 11 5-14 MMOL/L Blood Urea Nitrogen 12 7-18 MG/DL Creatinine 1.37 H 0.60-1.30 MG/DL Estimat Glomerular Filtration Rate 64 BUN/Creatinine Ratio 9 Glucose Level 109 H 70-105 MG/DL Calcium Level 9.6 8.5-10.1 MG/DL TSH [place] Testing 1.31 0.35-4.94 UIU/ML My Orders Orders - SURENDRA FELDMAN MD Ekg Tracing (03/17/23 15:51) Basic Metabolic Panel (03/17/23 16:17) Cbc With Automated Diff (03/17/23 16:17) Ed Iv/Invasive Line Start (03/17/23 16:17) Thyroid Analyzer (03/17/23 16:34) Vital Signs/I&O 03/17/23 03/17/23 15:51 17:28 Pulse 128 80 Resp 16 20 B/P (MAP) 130/91 (104) 127/96 Pulse Ox 98 96 O2 Delivery Room Air Room Air Blood Pressure Mean: 104 Progress Progress Note : Progress Note EKG demonstrated A-fib with mild RVR. Rhythm converted to normal sinus on the monitor before my exam and remained in NSR throughout the reminder of the ER stay. Labs including CBC, BMP and Thyroid analyzer were unremarkable by my interpretation. [id number] score was 1. ASA 81 mg daily was recommended until he sees Dr Fan to discuss further. He was advised to refrain from alcohol use. Initial ECG Impression Date: Mar 17, 2023 Initial ECG Impression Time: 15:59 Initial ECG Rate: 126 Initial ECG Rhythm: A Fib/Flutter Initial ECG Impression: Atrial Fibrillation w/RVR Comment Atrial fibrillation with RVR. No ST elevation or depression. Automated read reports incomplete right bundle branch block. No axis deviation. Departure Impression Primary Impression: Atrial fibrillation with RVR Additional Impression: Paroxysmal atrial fibrillation Disposition: 01 HOME, SELF-CARE Condition: Improved Departure-Patient Inst. Decision time for Depature: 17:01 Referrals: DARIUSZ HERNANDES (PCP/Family) Primary Care Physician Patient Instructions: Atrial fibrillation Add. Discharge Instructions: Keep your appointment with Dr. Fan. Call his office tomorrow to inform them you were seen in the emergency room for an episode of sustained atrial fibrillation with rapid ventricular response. They may wish to expedite your follow-up based on this event. Based on your [id number] 2 score of 1 (score of 1 due to history of high blood pressure) I recommend that you take aspirin 81 mg daily until you can discuss this further at your cardiology appointment. Avoid alcohol consumption and other triggers of atrial fibrillation. If you have further sustained episodes of atrial fibrillation, particularly if you have associated symptoms such as chest pain, shortness of breath, lightheadedness, etc., please return to the emergency room. Continue to live a healthy lifestyle with a well-balanced diet, healthy weight, and reasonable exercise. All discharge instructions reviewed with patient and/or family. Voiced understanding. Copy Copies To 1: NATALIE FAN MD FACP FACC CCDS SURENDRA FELDMAN MD Mar 17, 2023 17:03
[2023-03-17 17:28] VITALS: BP 127/96
== END 2023-03-17 17:28 | disposition home or self-care (01) ==
LOC: EDUNIT# 15:41 → ER 15:44
DX: I48.0 Paroxysmal atrial fibrillation (principal)
CPT/HCPCS: 36415; 80048; 84443; 85025; 93005

== ENCOUNTER → 2023-04-28 | Outpatient (CLI) | payer OTHER | LOC: CARD 09:37 | PROVIDERS: ATTEND Internal Medicine Cardiovascular Disease | DX: I34.81 Nonrheumatic mitral (valve) annulus calcification (principal); I48.0 Paroxysmal atrial fibrillation | CPT/HCPCS: 93306 ==